=== PATIENT | male | born 1980 | race African-American/Black ===

== ENCOUNTER 2020-02-20 09:42 | Emergency (ER) | payer BC, OTHER ==
[~2020-02-20] VITALS: Ht 180.3 cm; Wt 88.5 kg
[~2020-02-20 09:42] MED LIST: FLEXERIL PO; IBUPROFEN 600600 M1 PO; NAPROSYN500 MG PO; NORCO 5-325 TA1 EACH PO; PRILOSEC 20 MG20 MG PO; PROMETHAZINE-C120 ML PO; ROBITUSSIN15 MG/5 ML; ULTRAM 50MG TAB50 MG PO; ZOFRAN ODT4 MG PO; ZOFRAN4 MG PO; ZPAK PO
[2020-02-20 09:59] LABS: URINE BILIRUBIN NEGATIVE (Negative); URINE BLOOD NEGATIVE (Negative); URINE CLARITY CLEAR; URINE COLOR YELLOW; URINE GLUCOSE-RANDOM* NEGATIVE (Negative); URINE KETONES TRACE (Negative); URINE LEUKOCYTES-REFLEX NEGATIVE (Negative); URINE NITRITE-REFLEX NEGATIVE (Negative); URINE PROTEIN (DIPSTICK) TRACE (Negative); URINE SPECIFIC GRAVITY >= 1.030 (1.005-1.035); URINE UROBILINOGEN 0.2 E.U./dl (0.2-1.0)
[2020-02-20 11:22] LABS: ABSOLUTE NEUTROPHILS 4.1 thou/uL (1.4-8.2); BASOPHILS 0.9 % (0.0-2.0); EOSINOPHILS 0.6 % (0.0-3.0); HEMATOCRIT 42.8 % (42.0-52.0); HEMOGLOBIN 14.2 gm/dL (14.0-18.0); LYMPHOCYTES 24.7 % (24.0-44.0); MCH 29.3 pg (26.0-34.0); MCV 88.7 fL (80.0-100.0); MONOCYTES 8.8 % (1.0-8.0); PLATELET COUNT 187 thou/uL (150-400); RBC 4.83 mil/uL (4.50-6.00); RDW 14.2 % (10.5-14.5); WBC 6.3 thou/uL (4.0-11.0)
[2020-02-20 11:39] LABS: CALCIUM 8.8 mg/dL (8.5-10.1); CREATININE 1.1 mg/dL (0.7-1.3)
[2020-02-20 11:45] LABS: ALBUMIN 3.6 g/dL (3.4-5.0); TOTAL BILIRUBIN 0.5 mg/dL (0.2-1.0); TOTAL PROTEIN 7.6 g/dL (6.4-8.2)
[2020-02-20] MEDS ORDERED: TRAMADOL 50 MG50 MG PO (12:31)
[2020-02-20] MEDS ORDERED: FLAGYL500 M1 PO (12:33)
[2020-02-20] MEDS ORDERED: CIPROFLOXACIN500 M1 PO (12:33)
[2020-02-20 13:55] VITALS: BP 119/71
== END 2020-02-20 13:56 | disposition home or self-care (01) ==
LOC: ER 09:42
PROVIDERS: Emergency Medicine
DX: K57.32 Diverticulitis of large intestine without perforation or abscess without bleeding (principal); K86.89 Other specified diseases of pancreas; R10.32 Left lower quadrant pain; F12.90 Cannabis use, unspecified, uncomplicated; Z79.899 Other long term (current) drug therapy

== ENCOUNTER 2020-08-07 18:16 | Emergency (ER) | payer BC ==
[~2020-08-07] VITALS: Ht 180.3 cm; Wt 90.7 kg
[~2020-08-07 18:16] MED LIST changes: +CIPROFLOXACIN500 M1 PO; +FLAGYL500 M1 PO; +TRAMADOL 50 MG50 MG PO
[2020-08-07] MEDS ORDERED: NORCO5 PO (19:44)
[2020-08-07] MEDS ORDERED: IBUPROFEN 800800 M1 PO (19:45)
[2020-08-07 20:13] VITALS: BP 140/88
== END 2020-08-07 20:00 | disposition home or self-care (01) ==
LOC: ER 18:16
DX: M25.512 Pain in left shoulder (principal); Z79.899 Other long term (current) drug therapy; Z88.5 Allergy status to narcotic agent; W22.8XXA Striking against or struck by other objects, initial encounter; Y93.39 Activity, other involving climbing, rappelling and jumping off; Y92.89 Other specified places as the place of occurrence of the external cause; Y99.8 Other external cause status